=== PATIENT | male | born 1960 | race Caucasian/White ===

== ENCOUNTER → 2024-05-21 10:05 | Outpatient (BNVA) | payer BC, SELFPAY | PROVIDERS: Family Provider Family Medicine; PCP Family Medicine; Visit Provider Family Medicine | DX: Z12.5 Encounter for screening for malignant neoplasm of prostate (principal); I10 Essential (primary) hypertension | CPT/HCPCS: 80053; 80061; 84153; 84439; 84443; 85025 ==